=== PATIENT | female | born 1935 | race African-American/Black ===

== ENCOUNTER → 2019-03-22 | Outpatient (CLI) | payer MEDICARE, OTHER ==
[~2019-03-22] MED LIST: AMLO5TAB4 PO; PRED5TAB PO
== END | disposition home or self-care (01) ==
LOC: LAB 11:47
PROVIDERS: ATTEND Internal Medicine
DX: J40 Bronchitis, not specified as acute or chronic (principal); M06.9 Rheumatoid arthritis, unspecified
CPT/HCPCS: 71046

== ENCOUNTER 2019-04-26 11:14 | Inpatient (IN) | payer MEDICARE, OTHER ==
[~2019-04-26] VITALS: Ht 157.5 cm; Wt 44.0 kg
[2019-04-26] MEDS ORDERED: SOD CHLORIDE 0.9% 1,000 ML IV STA (11:39)
[2019-04-26] MEDS ORDERED: ACETAMINOPHEN 325 MG TAB PO PRN (12:00)
[2019-04-26] MEDS ORDERED: ONDANSETRON 4 MG INJ IV PRN (12:00)
[2019-04-26] MEDS ORDERED: ASPIRIN 325 MG TAB PO ONE (12:00)
[2019-04-26] MEDS ORDERED: LEFL20TA18 PO (12:49)
[2019-04-26] MEDS ORDERED: AMLO5TAB4 PO (12:49)
[2019-04-26] MEDS ORDERED: TRAZ-111 PO (12:50)
[2019-04-26] MEDS ORDERED: PRED5TAB PO (12:52)
--- NOTE | 2019-04-26 13:26 | ERD ---
ER Documentation Chief Complaint Chief Complaint pt is sent by PMD cough, weakness, weight loss, sob, x1 wk HX RA HPI This is a very pleasant 83-year-old female presents to the emergency department complaining of chest pain shortness of breath and weight loss with generalized myalgias that is been progressively worsening for the past week. The patient has a known history of rheumatoid arthritis. She also indicates she has history of pulmonary disease secondary to exposure to substances several years ago in [place]. Her primary care physician Dr. Pulliam. She was seen today in his office but immediately was sent to the emergency department to be further evaluated for her symptoms. She did state the chest pain was a pressure-like sensation has been intermittent. It does not radiate to the neck arm back or jaw. The shortness of breath is present at rest. She denies any tenderness in her lower extremities. She had no fevers or shaking no chills. She had a decreased appetite and states she is lost roughly 10 pounds in roughly 1 week. No hemoptysis no hematemesis and no melanotic stools. ROS All systems reviewed and are negative except as per history of present illness. Medications Home Meds Reported Medications Prednisone* (Prednisone*) 5 Mg Tab, 5 MG PO EVERY OTHER DAY, TAB 04/26/19 Trazodone Hcl* (Trazodone Hcl*) 50 Mg Tablet, 50 MG PO QHS, #30 TAB 04/26/19 Leflunomide* (Leflunomide*) 20 Mg Tablet, 20 MG PO DAILY, #30 TAB 04/26/19 Amlodipine Besylate* (Norvasc*) 5 Mg Tablet, 5 MG PO DAILY, TAB 04/26/19 Discontinued Reported Medications Amlodipine Besylate* (Norvasc*) 5 Mg Tablet, 5 MG PO DAILY, TAB 10/03/16 Prednisone* (Prednisone*) 5 Mg Tab, 5 MG PO Q OTHER DAY, TAB 10/03/16 Allergies Allergies: Coded Allergies: codeine (Verified Adverse Reaction, Intermediate, SICK TO STOMACH, 1 12/04/15) N/V PMhx/Soc History of Surgery: Yes (L BKA) Anesthesia Reaction: No Hx Neurological Disorder: No Hx Respiratory Disorders: Yes (ASTHMA) Hx Cardiac Disorders: Yes (HTN) Hx Psychiatric Problems: No Hx Miscellaneous Medical Probl: Yes (RA, DM) Hx Alcohol Use: No Hx Substance Use: No Hx Tobacco Use: No Smoking Status: Never smoker Physical Exam Vitals Vital Signs Date Temp Pulse Resp B/P (MAP) Pulse Ox O2 O2 Flow FiO2 Time Delivery Rate 04/26/19 98.3 108 20 166/86 98 11:18 (112) Physical Exam Constitutional:Well-developed. Well-nourished. HEENT:Normocephalic. Atraumatic.Pupils were equal round reactive to light. Moist mucous membranes.No tonsillar exudates. Neck: No nuchal rigidity. No lymphadenopathy. No posterior cervical spine tenderness or step-offs. Respiratory: Not using accessory muscles of respiration.Lungs were clear to auscultation bilaterally. No rhonchi. No rales. No wheezing. Cardiovascular: Regular rate regular rhythm.No murmurs. No rubs were appreciated.S1, S2 normal. Distal pulses are palpable 2+ bilaterally. GI: Abdomen was soft. Nontender. Non Distended. No pulsatile abdominal masses or bruits. No rebound. No guarding. Bowel sounds were present and normal. Muscle skeletal: Full range of motion of both the upper and lower extremities bilaterally.Normal muscle tone.No assymetrical calf tenderness or swelling. Skin: No petechia, no purpura. No lesions on the palms or the soles of the feet. No maculopapular rash. NEURO: Patient was alert, awake, orientated x3.No facial droop. Gait observed and normal with no ataxia.Speech had regular rate and rhythm. No focal neurological deficits. Result Diagram: 04/26/19 1156 04/26/19 1156 Results 24 hrs Laboratory Tests Test 04/26/19 11:56 White Blood Count 7.4 10^3/ul Red Blood Count 4.86 10^6/ul Hemoglobin 13.8 g/dl Hematocrit 43.9 % Mean Corpuscular Volume 90.3 fl Mean Corpuscular Hemoglobin 28.4 pg Mean Corpuscular Hemoglobin Concent 31.4 g/dl Red Cell Distribution Width 13.4 % Platelet Count 280 10^3/UL Mean Platelet Volume 10.5 fl Immature Granulocytes % 0.400 % Neutrophils % 34.9 % Lymphocytes % 48.3 % Monocytes % 7.2 % Eosinophils % 7.2 % Basophils % 2.0 % Nucleated Red Blood Cells % 0.0 /100WBC Immature Granulocytes # 0.030 10^3/ul Neutrophils # 2.6 10^3/ul Lymphocytes # 3.6 10^3/ul Monocytes # 0.5 10^3/ul Eosinophils # 0.5 10^3/ul Basophils # 0.2 10^3/ul Nucleated Red Blood Cells # 0.0 10^3/ul Prothrombin Time 13.8 Sec Prothrombin Time Ratio 1.1 INR International Normalized Ratio 1.05 Activated Partial Thromboplast Time 36.4 Sec Sodium Level 142 mmol/L Potassium Level 4.3 mmol/L Chloride Level 107 mmol/L Carbon Dioxide Level 23 mmol/L Anion Gap 12 Blood Urea Nitrogen 10 mg/dl Creatinine 0.79 mg/dl Est Glomerular Filtrat Rate mL/min mL/min Glucose Level 108 mg/dl Calcium Level 9.0 mg/dl Total Bilirubin 0.4 mg/dl Direct Bilirubin 0.00 mg/dl Indirect Bilirubin 0.4 mg/dl Aspartate Amino Transf (AST/SGOT) 45 IU/L Alanine Aminotransferase (ALT/SGPT) 9 IU/L Alkaline Phosphatase 161 IU/L Troponin I < 0.012 ng/ml B-Type Natriuretic Peptide 371 PG/ML Total Protein 10.2 g/dl Albumin 4.2 g/dl Globulin 6.00 g/dl Albumin/Globulin Ratio 0.70 Amylase Level 99 U/L Lipase 70 U/L Current Medications Medications Dose Sig/Gaurang Start Time Status Last (Trade) Ordered Route PRN Stop Time Admin Dose Reason Admin Sodium 1,000 ml @ Q1H STAT 04/26/19 DC 04/26/19 Chloride 1,000 mls/hr IV 11:39 12:06 04/26/19 12:38 Ondansetron 4 mg ER BRIDGE 04/26/19 HCl (Zofran PRN IV 12:00 Inj) NAUSEA/VOMITI 04/27/19 11:59 NG 650 mg ER BRIDGE 04/26/19 Acetaminophen PRN PO 12:00 (Tylenol .MILD PAIN 04/27/19 11:59 Tab) 1-3 OR TEMP Aspirin 325 mg ONCE ONCE 04/26/19 DC 04/26/19 (Aspirin) PO 12:00 12:06 04/26/19 12:01 Procedures/MDM The patient presented to the emergency department with chest pain. My clinical evaluation and workup was to distinguish minor causes of chest pain from acute life threatening conditions such as myocardial infarction, pulmonary embolism, aortic dissection, esophageal rupture, cardiac tamponade. The patient was placed on a engine monitor and continuous pulse oximetry. IV access established by nursing staff. The patient received 325 mg of aspirin p.o. 12 Lead EKG tracing ordered and reviewed by myself showed: Normal sinus rhythm of 80 bpm and no arrhythmia. AL interval normal. QRS duration normal. No ST segment elevation No ST segment depression. No changes consistent with acute ischemia. I obtained a 1 view chest radiograph there is reviewed by the radiologist and indicate the followin. Interval decrease mild interstitial infiltrates, resolving mild interstitial edema or atypical infectious/inflammatory process. 2. Unchanged bibasilar coarse reticular opacities, suggestive of chronic interstitial lung disease. Recommend follow-up radiographic imaging. 3. Aortic atherosclerosis. Blood cultures were obtained. I discussed the findings of the chest radiograph with the patient but she does indicate that this is been a chronic inflammatory process. The patient will be admitted under the care of her primary care harvey calix for observation to undergo serial twelve-lead EKG tracings and cardiac set of enzymes. Departure Diagnosis: Primary Impression: Chest pain Chest pain type: unspecified Qualified Codes: R07.9 - Chest pain, unspecified Additional Impression: Shortness of breath Condition: Serious ABIMAEL SHANKAR MD Apr 26, 2019 13:26
[2019-04-26 14:42] VITALS: BP 174/109; PULSE 80; RESP 16
[2019-04-26 14:52] VITALS: Ht 157.5 cm; Wt 44.0 kg
[2019-04-26] MEDS ORDERED: ONDANSETRON 4 MG TAB PO PRN (15:00)
[2019-04-26] MEDS ORDERED: BARIUM SULF 2% 450 ML BTL (BERRY SMOOTHIE) PO ONE (15:00)
[2019-04-26] MEDS ORDERED: DOCUSATE SODIUM 100 MG CAP PO PRN (15:00)
[2019-04-26] MEDS ORDERED: NACL 0.9% 3 ML SYG IV SCH ×2 (15:00)
[2019-04-26] MEDS ORDERED: PROMETHAZINE/CODEINE 5ML CUP PO PRN (15:30)
[2019-04-26] MEDS: SOD CHLORIDE 0.45% 1,000 ML IV SCH (15:42)
[2019-04-26] MEDS: CEFTRIAXONE 1 GM/50 ML (PMX) 50 ML IVPB SCH (15:51)
[2019-04-26] MEDS: METHYLPREDNISOLONE 40 MG INJ IV SCH ×2 (16:03→22:36)
[2019-04-26] MEDS: PROMETHAZINE (1.25 MG/ML) 5 ML CUP PO PRN (17:00)
[2019-04-26] MEDS: AMLODIPINE 5 MG TAB PO SCH (17:26)
[2019-04-26 19:44] VITALS: BP 162/86; PULSE 86; RESP 18
--- NOTE | 2019-04-26 21:23 | HP ---
DATE OF ADMISSION: 04/26/2019 CHIEF COMPLAINT AND HISTORY OF PRESENT ILLNESS: The patient is an 83-year-old lady who presents to [facility] office with recurrent chest pain and shortness of breath and weight loss of over 10 pounds the last 2 or 3 months, with very poor p.o. intake, and patient was evaluated in the emergency room and was a dmitted. The patient states the chest pain was pressure-like, intermittent, without radiation, and s he has shortness of breath at rest. Denies any fever, chills, night sweats. She has had very poor p .o. intake secondary to poor appetite. Denies any abdominal pains. She has a long history of rheuma toid arthritis, being followed by a manager federal, on long-term prednisone. MEDICATIONS: Include: 1. Prednisone 5 mg daily. 2. Trazodone 50 mg at bedtime. 3. Leflunomide 20 mg daily. 4. Amlodipine 5 mg daily. REVIEW OF SYSTEMS: HEAD: No history of headaches, focal weakness, or numbness. EYES: Status post prior eye surgery. ENT: Decreased hearing bilaterally. NECK: No history of thyroid disease. CHEST: History of chronic cough, as above, which has gotten worse recently. HEART: No PND or orthopnea. Patient does have recurrent chest pain not related to exertion, increas ed with cough. GASTROINTESTINAL: No constipation, diarrhea, change in bowel habits. GENITOURINARY: No dysuria, hematuria, kidney stones. FAMILY HISTORY: Noncontributory. PHYSICAL EXAMINATION: GENERAL: The patient is an average-built female who is very pleasant, appears ill. VITAL SIGNS: Temperature 98.3, blood pressure 166/86, O2 saturation 98% on room air. HEENT: Head normocephalic. Mild pallor without cyanosis. Tongue is coated, moist. NECK: Supple. No thyromegaly, bruits or lymphadenopathy. CHEST: Revealed bilateral crackles. HEART: S1, S2 with no definite gallops. ABDOMEN: Soft, nontender, no hepatosplenomegaly. EXTREMITIES: Status post left below knee amputation. Pedals from the right are not palpable. Chris s negative. NEUROLOGIC: No localizing or lateralizing signs. LABORATORY DATA: White count is 7.4, hematocrit 43.9, platelet count 280,000. Sodium 142, potassium 4.3, BUN 10, creatinine 0.79, glucose 108. Troponin is less than 0.012. UA shows trace ketones, tr kaiden leukocyte esterase. INR is 1.05, PTT is 36.4. Chest x-ray shows bilateral interstitial infiltra shruti. IMPRESSION: 1. 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 2. Hypertension. 3. Recent weight loss, poor appetite. Rule out occult malignancy. 4. Peripheral vascular disease, status post left below knee amputation. PLAN: Will start the patient on intravenous antibiotics, she has an element of severe bronchitis, al светлана with intravenous steroids. We will proceed with a CT scan of the chest, obtain procalcitonin lev els, and pulmonary consultation with Dr. Rowe. Consider rheumatologic consultation as well. Dictated By: MELLO ZARAGOZA MD SR/NTS Conf#: [id number] DID#: [id number]
[2019-04-26] MEDS ORDERED: IOHEXOL 300MG/ML 150 ML BTL ONE (23:02)
[2019-04-26] MEDS ORDERED: SOD CHLORIDE 0.9% 100 ML ONE (23:02)
[2019-04-26] MEDS: MIRTAZAPINE 15 MG TAB PO SCH (23:45)
[2019-04-27] MEDS: PROMETHAZINE (1.25 MG/ML) 5 ML CUP PO PRN ×3 (00:20→14:49)
[2019-04-27 00:43] VITALS: BP 153/79; PULSE 79; RESP 18
[2019-04-27 03:44] VITALS: BP 123/79; PULSE 71; RESP 18
[2019-04-27] MEDS: PANTOPRAZOLE (EC) 40 MG TAB PO SCH (06:05)
[2019-04-27] MEDS: METHYLPREDNISOLONE 40 MG INJ IV SCH ×2 (06:05→21:33)
[2019-04-27 07:20] VITALS: BP 153/92; PULSE 74; RESP 20
[2019-04-27] MEDS ORDERED: AMLODIPINE 5 MG TAB PO SCH (09:00)
[2019-04-27] MEDS: AMLODIPINE 5 MG TAB PO SCH (09:07)
[2019-04-27] MEDS: ENOXAPARIN 30 MG/0.3 ML SYG SC SCH (09:35)
[2019-04-27 10:56] VITALS: BP 162/78; PULSE 77; RESP 19
[2019-04-27] MEDS: SOD CHLORIDE 0.45% 1,000 ML IV SCH (11:54)
[2019-04-27] MEDS ORDERED: MAGNESIUM SULFATE 2 GM/50 ML 50 ML IVPB ONE (14:30)
[2019-04-27] MEDS: CEFTRIAXONE 1 GM/50 ML (PMX) 50 ML IVPB SCH (14:49)
[2019-04-27 15:29] VITALS: BP 146/79; PULSE 83; RESP 19
[2019-04-27] MEDS: ACETAMINOPHEN 325 MG TAB PO PRN (16:00)
--- NOTE | 2019-04-27 16:27 | CONS ---
DATE OF ADMISSION: 04/27/2019 DATE OF CONSULTATION: 04/27/2019 TYPE OF CONSULTATION: Pulmonary. REFERRING PHYSICIAN: Dr. Zaragoza. REASON FOR CONSULTATION: Shortness of breath and abnormal chest x-ray. HISTORY OF PRESENT ILLNESS: This is an 83-year-old woman with a history of longstanding rheumatoid a rthritis who initially presented to Dr. Zaragoza's office with complaints of recurrent chest pain and shortness of breath. The patient describes the cough as intermittent and nonproductive. Chest pain she described as pressure-like, intermittent without any particular radiation. The patient subs equently was referred to ER and hospitalized. Chest x-ray revealed increased interstitial markings. At present, the patient denies any chest pain. REVIEW OF SYSTEMS: CONSTITUTIONAL: Denies fevers, chills, night sweats. RESPIRATORY: As mentioned above. Denies any pleurisy. CARDIOVASCULAR: Admitted to chest pain as described above. Denies any palpitation. GASTROINTESTINAL: Denies nausea, vomiting, diarrhea, abdominal pain. GENITOURINARY: Denies dysuria or hematuria. NEUROLOGICAL: Denies dizziness, loss of consciousness. Other systems were reviewed also and found to be negative. The patient had a longstanding history of rheumatoid arthritis and is on low-dose prednisone at home. PAST MEDICAL HISTORY: History of rheumatoid arthritis. ALLERGIES: DENIES. SOCIAL HABITS: Nonsmoker. Denies alcohol abuse. Denies drug abuse. FAMILY HISTORY: Noncontributory. PHYSICAL EXAMINATION: VITAL SIGNS: Blood pressure 153/92, pulse 74, respirations 20, temperature 97.7. She is on room air saturating 100%. HEENT: Pupils are equal and react to light. NECK: Supple, no JVD noted, no cervical adenopathy noted. LUNGS: Bibasilar crackles are present. CARDIOVASCULAR: S1 and S2 normal. ABDOMEN: Soft, nontender, no organomegaly or masses noted. EXTREMITIES: No clubbing, cyanosis, or edema noted. Rheumatoid changes are present in both hands. NEUROLOGIC: No focal deficits. LABORATORIES: WBC 5.3, hemoglobin 13.5, hematocrit 42, platelets 282. Sodium 140, potassium 4.4, ch loride 106, CO2 22, BUN 8, creatinine 0.6, glucose 211. Troponin is less than 0.01. BNP 371. The T SH is 0.645. Amylase and lipase normal. IMAGING: The chest x-ray shows increased interstitial markings. IMPRESSION: 1. Suspect interstitial lung disease. 2. History of rheumatoid arthritis, on low-dose steroids. 3. History of hypertension. 4. Peripheral vascular disease. RECOMMENDATIONS: 1. Obtain CT scan of the chest. 2. Continue steroids for now. 3. Will need some labwork related to possible interstitial lung disease after review of CT scan of t he chest. 4. Will discuss with Dr. Zaragoza. Dictated By: SOBEIDA ROY MD, MA/CUONG Conf#: [id number] DID#: [id number] CC: MELLO ZARAGOZA MD;*EndCC*
--- NOTE | 2019-04-27 17:17 | RADRPT ---
Vent Rate: 73 bpm RR Interval: 824 msec MN Interval: 161 msec QRS Duration: 92 msec QT Interval: 449 msec QTC Interval: 495 msec P-R-T Volin: 61 - 53 - 60 degrees Sinus rhythm...normal P axis, V-rate 50- 99 Electronically Signed By: Yodry Moreno
--- NOTE | 2019-04-27 17:54 | PN ---
DATE: 04/27/2019 SUBJECTIVE: The patient continues with cough but feels much better than yesterday. No hemoptysis. Denies any fever or chills. PHYSICAL EXAMINATION VITAL SIGNS: Temperature 97.7, blood pressure 162/78, O2 sats 99% on room air. CHEST: Bilateral crackles at the bases. HEART: S1, S2 heard, no definite gallops. ABDOMEN: Soft, nontender, no hepatosplenomegaly. EXTREMITIES: No edema. LABORATORY DATA: Sodium 140, potassium 4.4, magnesium is 1.8, hematocrit 542. WBC count 5.3, platel et count 282,000. Total protein is 10.2 with a globulin of 6.0, alkaline phosphatase of 161. IMAGING: CT scan of the chest shows no alveolar infiltrate, mass or nodules noted. There is fibroti c scarring at the lung bases. No hilar adenopathy. No pulmonary embolism. CT of the abdomen and pe lvis shows vascular calcifications and cholelithiasis, 3 x 2.2 cm cystic mass in the left adnexa like ly representing a physiological cyst, 3 mm anterolisthesis of L5 on S1. IMPRESSION: 1. 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 2. Hypertension. 3. Cholelithiasis. 4. Peripheral vascular disease, status post left below knee amputation. 5. Hyperglobulinemia. PLAN: Will obtain serum protein electrophoresis, ordered factor and MARY KAY and consider rheumatologic c onsultation. Will start tapering steroids. The patient also has gram negative UTI. Will obtain uri ne cultures and reevaluate with antibiotics. Dictated By: MELLO ZARAGOZA MD, SR/UCONG Conf#: [id number] DID#: [id number]
[2019-04-27 20:14] VITALS: BP 156/79; PULSE 79; RESP 18
[2019-04-27] MEDS: MIRTAZAPINE 15 MG TAB PO SCH (22:08)
[2019-04-28] VITALS: BP 158/82; PULSE 82; RESP 18
[2019-04-28 04:20] VITALS: BP 160/84; PULSE 74; RESP 18
[2019-04-28] MEDS: SOD CHLORIDE 0.45% 1,000 ML IV SCH (05:49)
[2019-04-28] MEDS: PANTOPRAZOLE (EC) 40 MG TAB PO SCH (05:50)
[2019-04-28] MEDS: ACETAMINOPHEN 325 MG TAB PO PRN (05:50)
[2019-04-28 07:04] VITALS: BP 158/80; PULSE 75; RESP 20
[2019-04-28] MEDS: AMLODIPINE 5 MG TAB PO SCH (08:39)
[2019-04-28] MEDS: METHYLPREDNISOLONE 40 MG INJ IV SCH ×2 (08:39→20:58)
[2019-04-28] MEDS: ENOXAPARIN 30 MG/0.3 ML SYG SC SCH (08:45)
[2019-04-28 11:13] VITALS: BP 150/79; PULSE 81; RESP 18
[2019-04-28] MEDS: PROMETHAZINE (1.25 MG/ML) 5 ML CUP PO PRN ×2 (15:15→23:20)
[2019-04-28] MEDS: CEFTRIAXONE 1 GM/50 ML (PMX) 50 ML IVPB SCH (15:15)
[2019-04-28 15:49] VITALS: BP 163/81; PULSE 77; RESP 19
--- NOTE | 2019-04-28 16:25 | PN ---
DATE: 04/28/2019 SUBJECTIVE: Chart reviewed. The patient remains on room air saturating 98% and does not appear in a cute distress. PHYSICAL EXAMINATION: VITAL SIGNS: Blood pressure 160/84, pulse 74, respiration 18, temperature 97.8. HEENT: Pupils are equal and react to light. NECK: Supple, no cervical adenopathy noted. LUNGS: Bibasilar crackles are present. CARDIOVASCULAR: S1, S2 normal. ABDOMEN: Soft, nontender. No masses noted. EXTREMITIES: No clubbing, cyanosis, or edema noted. Rheumatoid changes present in both hands. NEUROLOGIC: Awake and alert. LABORATORY DATA: WBC 13.8, hemoglobin 14, hematocrit 44.1, platelets 259. Sodium 140, potassium 4.5 , chloride 105, CO2 of 25, BUN 13, creatinine 0.63, glucose 232. IMPRESSION: 1. Suspect interstitial lung disease. 2. History of rheumatoid arthritis, longstanding on low dose steroid. 3. History of hypertension. 4. Peripheral vascular disease. 5. Elevated white count, likely due to steroids. RECOMMENDATIONS: 1. Await CT scan of the chest. 2. Taper steroids. 3. After review of CT scan of the chest, will be able to recommend more lab work. 4. Given her advanced age, the patient may not be a candidate for open lung biopsy. Dictated By: SOBEIDA ROY MD, MA/CUONG Conf#: [id number] DID#: [id number] CC: MELLO ZARAGOZA MD;*EndCC*
[2019-04-28 20:00] VITALS: BP 173/86; PULSE 84; RESP 18
[2019-04-28] MEDS: MIRTAZAPINE 15 MG TAB PO SCH (23:20)
[2019-04-29] VITALS (8 sets, daily range): BP systolic 134–189; BP diastolic 65–93; PULSE 59–99; RESP 15–20
--- NOTE | 2019-04-29 06:26 | PN ---
DATE: 04/28/2019 SUBJECTIVE: The patient continues to have cough, but overall feels better. PHYSICAL EXAMINATION: VITAL SIGNS: Temperature 97.9, blood pressure 163/81, O2 saturation 92% on room air. CHEST: Revealed bilateral crackles at bases. HEART: S1, S2 with no definite gallops. NEUROLOGIC: No localizing or lateralizing signs. LABORATORY DATA: WBC count 13.8, hematocrit 44.1, platelet count 259,000. Sodium 140, potassium 4.5 , BUN is 13, creatinine 0.63, magnesium is 2.7. IMPRESSION: 1. 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 2. Hypertension. 3. Cholelithiasis, asymptomatic. 4. Peripheral vascular disease, status post left below knee amputation. 5. Hyperglobulinemia. PLAN: We will continue to taper steroids. Will discuss with Dr. Arriola regarding further pulmonary w orkup. There was a 3 x 2 cm cystic mass in the left adnexa on the CT scan. CA-125 is 106. Concern about possible ovarian malignancy. We will request Dr. Nelson to evaluate the patient. Recheck labs in a.m. Dictated By: MELLO ZARAGOZA MD SR/NTS Conf#: [id number] DID#: [id number]
[2019-04-29] MEDS: SOD CHLORIDE 0.45% 1,000 ML IV SCH (06:38)
[2019-04-29] MEDS: PANTOPRAZOLE (EC) 40 MG TAB PO SCH (06:38)
[2019-04-29] MEDS: ACETAMINOPHEN 325 MG TAB PO PRN ×2 (07:45→23:38)
[2019-04-29] MEDS: METHYLPREDNISOLONE 40 MG INJ IV SCH (08:40)
[2019-04-29] MEDS: AMLODIPINE 5 MG TAB PO SCH (08:40)
[2019-04-29] MEDS: ENOXAPARIN 30 MG/0.3 ML SYG SC SCH (08:44)
[2019-04-29] MEDS ORDERED: GLUCOSE GEL 15 GRAM TUBE PO PRN ×2 (12:00)
[2019-04-29] MEDS ORDERED: DEXTROSE 50% 50 ML SYRINGE IV PRN ×2 (12:00)
[2019-04-29] MEDS ORDERED: GLUCAGON 1 MG INJ IM PRN (12:00)
[2019-04-29] MEDS ORDERED: GLUCOSE GEL 15 GRAM TUBE BUCCAL PRN (12:00)
--- NOTE | 2019-04-29 12:13 | PN ---
DATE: 04/29/2019 SUBJECTIVE: The patient overall feels better. PHYSICAL EXAMINATION: VITAL SIGNS: Temperature 98.4, blood pressure 146/74, O2 sat 97%. HEENT: Head normocephalic. Mild pallor. Tongue coated, moist. NECK: Supple. CHEST: Bilateral basilar crackles. HEART: S1, S2 heard, no rub or gallops. EXTREMITIES: No edema. Status post left below knee amputation. LABORATORY DATA: WBC count 14.4, hematocrit 39.9. Sodium 136, potassium 4.0, glucose 285. IMPRESSION: 1. 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 2. Hypertension. 3. Asymptomatic cholelithiasis. 4. Peripheral vascular disease, status post left below knee amputation. 5. Left adnexal mass with ICA 125 and this ultrasound was unremarkable. PLAN: Will taper steroids. Start the patient on NovoLog insulin per sliding coverage. Increase act ivity. We will discuss with Dr. Rowe. Dictated By: MELLO ZARAGOZA MD SR/CUONG Conf#: [id number] DID#: [id number]
[2019-04-29] MEDS: predniSONE 10 MG TAB PO SCH (13:39)
[2019-04-29] MEDS: INSULIN ASPART [NOVOLOG] 3 ML PEN SC SCH ×3 (13:48→20:20)
--- NOTE | 2019-04-29 13:49 | CONS ---
Consult Date/Type/Reason Admit Date/Time Apr 27, 2019 at 09:22 Initial Consult Date Type of Consult Pulmonary Date/Time of Note DATE: 04/29/19 TIME: 13:48 Subjective Patient comfortable this morning no respiratory distress Objective Vital Signs Date Temp Pulse Resp B/P (MAP) Pulse Ox O2 O2 Flow FiO2 Time Delivery Rate 04/29/19 97.4 61 15 143/73 98 11:50 (96) 04/27/19 Room Air 03:44 Intake and Output 04/28/19 04/28/19 04/29/19 1414:59 22:59 06:59 IntakeIntake Total 480 ml 790 ml 480 ml OutputOutput Total 1 ml 1 ml 4 ml BalanceBalance 479 ml 789 ml 476 ml Exam PHYSICAL EXAMINATION: VITAL SIGNS: HEENT: Pupils are equal and react to light. NECK: Supple, no cervical adenopathy noted. LUNGS: Bibasilar crackles are present. CARDIOVASCULAR: S1, S2 normal. ABDOMEN: Soft, nontender. No masses noted. EXTREMITIES: No clubbing, cyanosis, or edema noted. Rheumatoid changes present in both hands. NEUROLOGIC: Awake and alert. Results/Medications Result Diagram: 04/29/19 0608 04/29/19 0608 Results 24 hrs Laboratory Tests Test 04/29/19 06:08 04/29/19 12:05 White Blood Count 14.4 H Red Blood Count 4.51 Hemoglobin 12.9 Hematocrit 39.9 Mean Corpuscular Volume 88.5 Mean Corpuscular Hemoglobin 28.6 L Mean Corpuscular Hemoglobin Concent 32.3 Red Cell Distribution Width 13.2 Platelet Count 255 Mean Platelet Volume 11.0 H Immature Granulocytes % 0.600 H Neutrophils % 85.5 H Lymphocytes % 11.0 L Monocytes % 2.8 Eosinophils % 0.0 Basophils % 0.1 Nucleated Red Blood Cells % 0.0 Immature Granulocytes # 0.090 H Neutrophils # 12.3 H Lymphocytes # 1.6 Monocytes # 0.4 Eosinophils # 0.0 Basophils # 0.0 Nucleated Red Blood Cells # 0.0 Sodium Level 136 Potassium Level 4.0 Chloride Level 103 Carbon Dioxide Level 23 Anion Gap 10 Blood Urea Nitrogen 17 Creatinine 0.70 Est Glomerular Filtrat Rate mL/min Glucose Level 285 H Calcium Level 8.3 L Magnesium Level 2.3 Bedside Glucose 172 Medications Current Medications Ceftriaxone Sodium 50 ml @ 100 mls/hr Q24H IVPB Last administered on 04/28/19 15:15; Admin Dose 100 MLS/HR; Start 04/26/19 at 15:00 Sodium Chloride 1,000 ml @ 50 mls/hr Q20H IV Last administered on 04/29/19 06:38; Admin Dose 50 MLS/HR; Start 04/26/19 at 15:00 IV Flush (NS 3 ml) 3 ml PER PROTOCOL IV ; Start 04/26/19 at 15:00 Ondansetron HCl (Zofran Tab) 4 mg Q6H PRN PO NAUSEA/VOMITING Last administered on 04/28/19 20:58; Admin Dose 4 MG; Start 04/26/19 at 15:00 Acetaminophen (Tylenol Tab) 650 mg Q6H PRN PO .PAIN 1-3 OR TEMP Last administered on 04/29/19 07:45; Admin Dose 650 MG; Start 04/26/19 at 15:00 Docusate Sodium (Colace) 100 mg Q12H PRN PO .CONSTIPATION; Start 04/26/19 at 15:00 Pantoprazole (Protonix Tab) 40 mg DAILY@06 PO Last administered on 04/29/19 06:38; Admin Dose 40 MG; Start 04/27/19 at 06:00 Enoxaparin Sodium (Lovenox) 30 mg DAILY SC Last administered on 04/29/19 08:44; Admin Dose 30 MG; Start 04/27/19 at 09:00 IV Flush (NS 3 ml) 3 ml PER PROTOCOL IV ; Start 04/26/19 at 15:00 Amlodipine Besylate (Norvasc) 5 mg DAILY PO Last administered on 04/29/19 08:40; Admin Dose 5 MG; Start 04/26/19 at 18:00 Clonidine (Catapres) 0.1 mg QID PRN PO ELEVATED BLOOD PRESSURE Last administered on 04/28/19 23:19; Admin Dose 0.1 MG; Start 04/26/19 at 15:30 Promethazine HCl (Phenergan Liq) 6.25 mg Q4H PRN PO COUGH Last administered on 04/28/19 23:20; Admin Dose 6.25 MG; Start 04/26/19 at 16:30 Mirtazapine (Remeron) 15 mg QHS PO Last administered on 04/28/19at 23:20; Admin Dose 15 MG; Start 04/26/19 at 21:00 Prednisone (Prednisone) 30 mg DAILY PO ; Start 04/29/19 at 11:30 Insulin Aspart (Novolog Insulin Pen) NOVOLOG *MILD* ALGORITHM WITH MEALS BEDTIME SC ; Start 04/29/19 at 11:50 Miscellaneous Information 1 ea NOTE XX ; Start 04/29/19 at 12:00 Glucose (Glutose) 15 gm Q15M PRN PO DECREASED GLUCOSE; Start 04/29/19 at 12:00 Glucose (Glutose) 22.5 gm Q15M PRN PO DECREASED GLUCOSE; Start 04/29/19 at 12:00 Dextrose (D50w Syringe) 25 ml Q15M PRN IV DECREASED GLUCOSE; Start 04/29/19 at 12:00 Dextrose (D50w Syringe) 50 ml Q15M PRN IV DECREASED GLUCOSE; Start 04/29/19 at 12:00 Glucagon (Glucagen) 1 mg Q15M PRN IM DECREASED GLUCOSE; Start 04/29/19 at 12:00 Glucose (Glutose) 15 gm Q15M PRN BUCCAL DECREASED GLUCOSE; Start 04/29/19 at 12:00 Assessment/Plan Hospital Course (Demo Recall) IMPRESSION: 1. Suspect interstitial lung disease. 2. History of rheumatoid arthritis, longstanding on low dose steroid. 3. History of hypertension. 4. Peripheral vascular disease. 5. Elevated white count, likely due to steroids. RECOMMENDATIONS: 1. Await CT scan of the chest. 2. Taper steroids. 3. CT chest pending Discharge planning okay from pulmonary standpoint outpatient pulmonary function test and follow-up with ELIF Hagan MD, [facility] Apr 29, 2019 13:49
[2019-04-29] MEDS: CEFTRIAXONE 1 GM/50 ML (PMX) 50 ML IVPB SCH (14:33)
[2019-04-29] MEDS: PROMETHAZINE (1.25 MG/ML) 5 ML CUP PO PRN (17:15)
[2019-04-29] MEDS: MIRTAZAPINE 15 MG TAB PO SCH (20:11)
[2019-04-30] VITALS (7 sets, daily range): BP systolic 158–177; BP diastolic 66–84; PULSE 57–76; RESP 15–18
--- NOTE | 2019-04-30 01:59 | QN ---
Documentation Comment CONFERENCE ASSISTANT CONSULT I was asked by Dr Pulliam to see this 83 y.o. female in consultation as a right adnexal cyst was found with a CA-125 level of 106. Ms Varner was admitted a few days ago with bronchitis with associated chest pain, shortness of breath and a cough and she had also experienced a 10# weight loss over the preceding few months. She also has rheumatoid arthritis, hypertension and peripheral vascular disease and was, apparently, quite ill and dehydrated on admit.She was also found to have a UTI and was placed on Rocephin. The pt has been improving steadily. Due to the weight loss Dr Pulliam ordered a CT scan and a small 3 x 2.2 cm left adnexal mass was noted. An US of the pelvis followed and the cyst was visualized as a 2.3 x 1.5 cm simple cyst that appears very benign. A CA-125 was ordered and was found to be 106. The pt is asymptomatic in this regard. PMHx: Bronchitis. RA. HTN. Peripheral vascular disease. UTI. PSHx: HIRAM. 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 All: Codeine. A: Elderly female with bronchitis, improving. UTI. RA. Hypertension. Peripheral vascular disease. Benign appearing left adnexal simple cyst. P: Continue care as necessitated medically. Due to the very benign appearing nature of the adnexal cyst, and somewhat, but not completely, due to the medical status of this patient, my recommendation would be to follow this pt on an outpatient basis and repeat the US in 2 months as well as the CA-125. If the CA- 125 was exceptionally elevated e.g. 1000 then intervention would be called for but as this is not a completely specific test and the levels can be elevated for other reasons AND the cyst appears unilocular and without any solid components I would want more reasons to intervene surgically at this point in time Please call if any questions. Thank you. SHELLY MONGE MD Apr 30, 2019 01:59
[2019-04-30] MEDS: PANTOPRAZOLE (EC) 40 MG TAB PO SCH (05:29)
[2019-04-30] MEDS: INSULIN ASPART [NOVOLOG] 3 ML PEN SC SCH ×4 (07:59→20:02)
[2019-04-30] MEDS: AMLODIPINE 5 MG TAB PO SCH (08:00)
[2019-04-30] MEDS: predniSONE 10 MG TAB PO SCH (08:00)
[2019-04-30] MEDS: ENOXAPARIN 30 MG/0.3 ML SYG SC SCH (08:03)
--- NOTE | 2019-04-30 11:16 | CONS ---
Consult Date/Type/Reason Admit Date/Time Apr 27, 2019 at 09:22 Initial Consult Date Type of Consult Pulmonary Date/Time of Note DATE: 04/30/19 TIME: 11:12 Subjective Patient comfortable no new events Objective Vital Signs Date Temp Pulse Resp B/P (MAP) Pulse Ox O2 O2 Flow FiO2 Time Delivery Rate 04/30/19 97.5 57 15 159/81 98 07:22 (107) 04/30/19 Room Air 03:27 Intake and Output 04/29/19 04/29/19 04/30/19 1515:00 23:00 07:00 IntakeIntake Total 500 ml 800 ml 460 ml OutputOutput Total 1 ml BalanceBalance 499 ml 800 ml 460 ml Exam PHYSICAL EXAMINATION: VITAL SIGNS: HEENT: Pupils are equal and react to light. NECK: Supple, no cervical adenopathy noted. LUNGS: Bibasilar crackles are present. CARDIOVASCULAR: S1, S2 normal. ABDOMEN: Soft, nontender. No masses noted. EXTREMITIES: No clubbing, cyanosis, or edema noted. Rheumatoid changes present in both hands. NEUROLOGIC: Awake and alert. Results/Medications Result Diagram: 04/29/19 0608 04/29/19 0608 Results 24 hrs Laboratory Tests Test 04/29/19 12:05 04/29/19 13:38 04/29/19 17:15 04/29/19 20:10 Bedside Glucose 172 187 168 214 Test 04/30/19 07:55 Bedside Glucose 159 Medications Current Medications Ceftriaxone Sodium 50 ml @ 100 mls/hr Q24H IVPB Last administered on 04/29/19at 14:33; Admin Dose 100 MLS/HR; Start 04/26/19 at 15:00 IV Flush (NS 3 ml) 3 ml PER PROTOCOL IV ; Start 04/26/19 at 15:00 Ondansetron HCl (Zofran Tab) 4 mg Q6H PRN PO NAUSEA/VOMITING Last administered on 04/28/19at 20:58; Admin Dose 4 MG; Start 04/26/19 at 15:00 Acetaminophen (Tylenol Tab) 650 mg Q6H PRN PO .PAIN 1-3 OR TEMP Last administered on 04/29/19at 23:38; Admin Dose 650 MG; Start 04/26/19 at 15:00 Docusate Sodium (Colace) 100 mg Q12H PRN PO .CONSTIPATION; Start 04/26/19 at 15:00 Pantoprazole (Protonix Tab) 40 mg DAILY@06 PO Last administered on 04/30/19at 05:29; Admin Dose 40 MG; Start 04/27/19 at 06:00 Enoxaparin Sodium (Lovenox) 30 mg DAILY SC Last administered on 04/30/19at 08:03 ; Admin Dose 30 MG; Start 04/27/19 at 09:00 IV Flush (NS 3 ml) 3 ml PER PROTOCOL IV ; Start 04/26/19 at 15:00 Amlodipine Besylate (Norvasc) 5 mg DAILY PO Last administered on 04/30/19at 08:00; Admin Dose 5 MG; Start 04/26/19 at 18:00 Clonidine (Catapres) 0.1 mg QID PRN PO ELEVATED BLOOD PRESSURE Last administered on 04/28/19at 23:19; Admin Dose 0.1 MG; Start 04/26/19 at 15:30 Promethazine HCl (Phenergan Liq) 6.25 mg Q4H PRN PO COUGH Last administered on 04/29/19at 17:15; Admin Dose 6.25 MG; Start 04/26/19 at 16:30 Mirtazapine (Remeron) 15 mg QHS PO Last administered on 04/29/19at 20:11; Admin Dose 15 MG; Start 04/26/19 at 21:00 Prednisone (Prednisone) 30 mg DAILY PO Last administered on 04/30/19at 08:00; Admin Dose 30 MG; Start 04/29/19 at 11:30 Insulin Aspart (Novolog Insulin Pen) NOVOLOG *MILD* ALGORITHM WITH MEALS BEDTIME SC Last administered on 04/30/19at 07:59; Admin Dose 1 UNIT; Start 04/29/19 at 11:50 Miscellaneous Information 1 ea NOTE XX ; Start 04/29/19 at 12:00 Glucose (Glutose) 15 gm Q15M PRN PO DECREASED GLUCOSE; Start 04/29/19 at 12:00 Glucose (Glutose) 22.5 gm Q15M PRN PO DECREASED GLUCOSE; Start 04/29/19 at 12:00 Dextrose (D50w Syringe) 25 ml Q15M PRN IV DECREASED GLUCOSE; Start 04/29/19 at 12:00 Dextrose (D50w Syringe) 50 ml Q15M PRN IV DECREASED GLUCOSE; Start 04/29/19 at 12:00 Glucagon (Glucagen) 1 mg Q15M PRN IM DECREASED GLUCOSE; Start 04/29/19 at 12:00 Glucose (Glutose) 15 gm Q15M PRN BUCCAL DECREASED GLUCOSE; Start 04/29/19 at 12:00 Assessment/Plan Hospital Course (Demo Recall) IMPRESSION: 1. ILD 2. History of rheumatoid arthritis, longstanding on low dose steroid. 3. History of hypertension. 4. Peripheral vascular disease. 5. Elevated white count, likely due to steroids. RECOMMENDATIONS: 1. aspiration precautions. 2. Taper steroids. 3. outpatient PFTS. Consider transfer to [facility] ELIF CHAVEZ MD, [facility] Apr 30, 2019 11:16
[2019-04-30] MEDS: CEFTRIAXONE 1 GM/50 ML (PMX) 50 ML IVPB SCH (14:44)
[2019-04-30] MEDS: ACETAMINOPHEN 325 MG TAB PO PRN (20:02)
[2019-04-30] MEDS: MIRTAZAPINE 15 MG TAB PO SCH (20:02)
[2019-05-01] VITALS (7 sets, daily range): BP systolic 123–173; BP diastolic 60–94; PULSE 60–75; RESP 17–18
[2019-05-01] MEDS: PANTOPRAZOLE (EC) 40 MG TAB PO SCH (04:45)
--- NOTE | 2019-05-01 07:13 | PN ---
DATE: 04/30/2019 SUBJECTIVE: The patient overall feels better. Shortness of breath is improving. OBJECTIVE: VITAL SIGNS: Temperature 97.4, blood pressure 160/79, O2 saturation 98% on room air. CHEST: Clinically clear anteriorly. Few crackles at the bases. HEART: S1, S2 heard with no definite gallops. Dr. Hassan's G1 consultation is greatly appreciated. Blood glucose levels stabilizing. IMPRESSION: 1. 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 2. Hypertension. 3. Asymptomatic cholelithiasis. 4. Peripheral vascular disease, status post left below knee amputation. 5. Left adnexal mass with increased CA-125. Gynecology workup in progress. PLAN: We will continue present treatment. We will discuss with Dr. Lindsey regarding further treat ment of RA. Dictated By: MELLO ZARAGOZA MD SR/NTS Conf#: [id number] DID#: [id number]
[2019-05-01] MEDS: INSULIN ASPART [NOVOLOG] 3 ML PEN SC SCH ×4 (07:55→20:52)
[2019-05-01] MEDS: AMLODIPINE 5 MG TAB PO SCH (08:06)
[2019-05-01] MEDS: predniSONE 10 MG TAB PO SCH (08:06)
[2019-05-01] MEDS: ENOXAPARIN 30 MG/0.3 ML SYG SC SCH (08:11)
--- NOTE | 2019-05-01 12:15 | CONS ---
Consult Date/Type/Reason Admit Date/Time Apr 27, 2019 at 09:22 Initial Consult Date Type of Consult Pulmonary Date/Time of Note DATE: 05/01/19 TIME: 12:15 Subjective Patient comfortable this morning no respiratory distress Objective Vital Signs Date Temp Pulse Resp B/P (MAP) Pulse Ox O2 O2 Flow FiO2 Time Delivery Rate 05/01/19 97.9 68 18 142/79 93 11:33 (100) 04/30/19 Room Air 03:27 Intake and Output 04/30/19 04/30/19 05/01/19 1515:00 23:00 07:00 IntakeIntake Total 466 ml 610 ml 220 ml OutputOutput Total 1 ml 1 ml BalanceBalance 465 ml 609 ml 220 ml Exam PHYSICAL EXAMINATION: VITAL SIGNS: HEENT: Pupils are equal and react to light. NECK: Supple, no cervical adenopathy noted. LUNGS: Bibasilar crackles are present. CARDIOVASCULAR: S1, S2 normal. ABDOMEN: Soft, nontender. No masses noted. EXTREMITIES: No clubbing, cyanosis, or edema noted. Rheumatoid changes present in both hands. NEUROLOGIC: Awake and alert. Results/Medications Result Diagram: 04/29/19 0608 04/29/19 0608 Results 24 hrs Laboratory Tests Test 04/30/19 17:14 04/30/19 20:01 05/01/19 08:04 05/01/19 12:03 Bedside Glucose 321 H 116 114 299 H Medications Current Medications Ceftriaxone Sodium 50 ml @ 100 mls/hr Q24H IVPB Last administered on 04/30/19at 14:44; Admin Dose 100 MLS/HR; Start 04/26/19 at 15:00 IV Flush (NS 3 ml) 3 ml PER PROTOCOL IV ; Start 04/26/19 at 15:00 Ondansetron HCl (Zofran Tab) 4 mg Q6H PRN PO NAUSEA/VOMITING Last administered on 04/28/19at 20:58; Admin Dose 4 MG; Start 04/26/19 at 15:00 Acetaminophen (Tylenol Tab) 650 mg Q6H PRN PO .PAIN 1-3 OR TEMP Last administered on 04/30/19at 20:02; Admin Dose 650 MG; Start 04/26/19 at 15:00 Docusate Sodium (Colace) 100 mg Q12H PRN PO .CONSTIPATION; Start 04/26/19 at 15:00 Pantoprazole (Protonix Tab) 40 mg DAILY@06 PO Last administered on 05/01/19at 04:45; Admin Dose 40 MG; Start 04/27/19 at 06:00 Enoxaparin Sodium (Lovenox) 30 mg DAILY SC Last administered on 05/01/19at 08:11; Admin Dose 30 MG; Start 04/27/19 at 09:00 IV Flush (NS 3 ml) 3 ml PER PROTOCOL IV ; Start 04/26/19 at 15:00 Amlodipine Besylate (Norvasc) 5 mg DAILY PO Last administered on 05/01/19at 08:06; Admin Dose 5 MG; Start 04/26/19 at 18:00 Clonidine (Catapres) 0.1 mg QID PRN PO ELEVATED BLOOD PRESSURE Last administered on 05/01/19at 08:06; Admin Dose 0.1 MG; Start 04/26/19 at 15:30 Promethazine HCl (Phenergan Liq) 6.25 mg Q4H PRN PO COUGH Last administered on 04/29/19at 17:15; Admin Dose 6.25 MG; Start 04/26/19 at 16:30 Mirtazapine (Remeron) 15 mg QHS PO Last administered on 04/30/19at 20:02; Admin Dose 15 MG; Start 04/26/19 at 21:00 Prednisone (Prednisone) 30 mg DAILY PO Last administered on 05/01/19at 08:06; Admin Dose 30 MG; Start 04/29/19 at 11:30 Insulin Aspart (Novolog Insulin Pen) NOVOLOG *MILD* ALGORITHM WITH MEALS BEDTIME SC Last administered on 05/01/19at 12:09; Admin Dose 4 UNIT; Start 04/29/19 at 11:50 Miscellaneous Information 1 ea NOTE XX ; Start 04/29/19 at 12:00 Glucose (Glutose) 15 gm Q15M PRN PO DECREASED GLUCOSE; Start 04/29/19 at 12:00 Glucose (Glutose) 22.5 gm Q15M PRN PO DECREASED GLUCOSE; Start 04/29/19 at 12:00 Dextrose (D50w Syringe) 25 ml Q15M PRN IV DECREASED GLUCOSE; Start 04/29/19 at 12:00 Dextrose (D50w Syringe) 50 ml Q15M PRN IV DECREASED GLUCOSE; Start 04/29/19 at 12:00 Glucagon (Glucagen) 1 mg Q15M PRN IM DECREASED GLUCOSE; Start 04/29/19 at 12:00 Glucose (Glutose) 15 gm Q15M PRN BUCCAL DECREASED GLUCOSE; Start 04/29/19 at 12:00 Assessment/Plan Hospital Course (Demo Recall) IMPRESSION: 1. ILD 2. History of rheumatoid arthritis, longstanding on low dose steroid. 3. History of hypertension. 4. Peripheral vascular disease. 5. Elevated white count, likely due to steroids. RECOMMENDATIONS: 1. aspiration precautions. 2. Taper steroids. 3. outpatient PFTS. Consider transfer to [facility] Follow-up with vt as an outpatient. ELIF [facility]AVEZ MD, [facility] May 01, 2019 12:15
[2019-05-01] MEDS: CEFTRIAXONE 1 GM/50 ML (PMX) 50 ML IVPB SCH (15:55)
--- NOTE | 2019-05-01 18:56 | PN ---
DATE: 05/01/2019 SUBJECTIVE: The patient overall feels better. Shortness of breath is improving. OBJECTIVE: VITAL SIGNS: Temperature 97.9, blood pressure 140/79, O2 saturation 98% on room air. HEENT: Head normocephalic. CHEST: Bibasilar crackles. HEART: S1, S2 with no definite gallops. EXTREMITIES: No edema. IMPRESSION: 1. Rheumatoid arthritis with interstitial lung disease, clinically improving. 2. Hypertension. 3. Asymptomatic cholelithiasis. 4. Peripheral vascular disease, status post below knee amputation, left. 5. Left adnexal mass with high CA-125. Dr. Hassan's recommendations much appreciated. PLAN: Rheumatology consultation at the request of Dr. Lindsey will transfer the patient to med/surg and observe for 24 hours. If the patient is stable, we will discharge the patient tomorrow. Dictated By: MELLO ZARAGOZA MD SR/NTS Conf#: [id number] DID#: [id number]
--- NOTE | 2019-05-01 19:06 | CONS ---
DATE OF ADMISSION: 04/27/2019 DATE OF CONSULTATION: HISTORY OF PRESENT ILLNESS: The patient is an 83-year-old -[place] woman with a long history of rheumatoid arthritis treated for many years with prednisone at 5 mg daily and leflunomide 20 mg d aily. The patient does not recall having been treated with other medications for rheumatoid arthriti s. She was followed by a collection clerk in [place]. She states that she has been here for a cou ple of years. She reports that over the last year or so she has been noting some increasing mild luz rtness of breath, but particularly in the last few days prior to admission this became more severe. She has also been having decreased appetite over the last 2 to 3 months and has lost about 10 pounds during that time. In the hospital, she was noted to have a urinary tract infection and chest x-ray w as suggestive of chronic interstitial lung disease. During the hospital stay, she has improved with hydration and antibiotics. In addition, CT of the chest showed chronic interstitial lung disease wit h honeycombing in the lower extremities and vascular calcifications also cholelithiasis and about a 3 cm x 2 cm left adnexal cystic mass, which on further evaluation with ultrasound was felt to be benig n. She did; however, have a CA 125/106, but a [facility] evaluation felt that this is somewhat nonspecific and we will reevaluate in the future for the possibility of consultation. During her hospital stay, she was also placed on IV Solu-Medrol and subsequently changed to prednisone at 30 mg daily. This al so apparently contributed to the improvement of her respiratory status as well as control of the pain and swelling of joints, which she states she has had up to the time of admission. REVIEW OF SYSTEMS: RHEUMATOLOGIC: Possibly positive for Raynaud's phenomenon. She denies history o f rashes. She does have some chronic dryness of the eyes and mouth, but no history of parotitis. MEDICATIONS: Prior to admission included: 1. Prednisone 5 mg daily. 2. Trazodone 50 mg q.p.m. 3. Leflunomide 20 mg daily. 4. Amlodipine 5 mg daily. SOCIAL HISTORY: No history of smoking or alcohol. FAMILY HISTORY: Noncontributory. PHYSICAL EXAMINATION: VITAL SIGNS: Afebrile, blood pressure 142/79, pulse 68, respiration 18, 93% O2 saturation on room ai r, at times it is up 98% to 100%. GENERAL: This is a somewhat cachectic appearing -[place] woman, alert, oriented. SKIN: Without acute lesions. HEENT: Without acute oral or ocular lesions. NECK: Without lymphadenopathy or thyromegaly noted. CHEST: Bibasilar crackles. HEART: Regular rate and rhythm, without noticeable gallops or murmurs. ABDOMEN: Soft without definite masses or tenderness. EXTREMITIES: No edema or cyanosis. MUSCULOSKELETAL SYSTEM: Multiple joint deformities at the hands with ulnar deviation and contracture s, but no synovitis at present, she is status post left BKA. Shoulders with decreased abduction to a bout 90 degrees. Knees with crepitus. NEUROLOGIC: Grossly intact. ASSESSMENT: 1. Probable rheumatoid arthritis history with multiple joint deformities consistent with rheumatoid arthritis, although in this hospital the rheumatoid factor was negative: 2. Interstitial lung disease, probably related to above. 3. Positive MARY KAY. No clear evidence of systemic lupus at this point. 4. Peripheral vascular disease. 5. Hypertension. 6. Elevated CA-125. RECOMMENDATIONS: At this point, would continue the corticosteroids as per pulmonary. Will obtain additional laboratory studies, particularly in view of the positive MARY KAY and negative rheu matoid factor. I would hold off the Leflunomide at this point as it is unclear to what extent it was beneficial and may have additional medication adverse effect. Thank you for allowing me to see the patient rheumatologically. Will follow. Dictated By: MARIELLE GALLEGOS MD CW/NTS Conf#: [id number] DID#: [id number] CC: MELLO ZARAGOZA MD;*End*
[2019-05-01] MEDS: ACETAMINOPHEN 325 MG TAB PO PRN (20:50)
[2019-05-01] MEDS: MIRTAZAPINE 15 MG TAB PO SCH (21:56)
[2019-05-02 02:00] VITALS: BP 167/80; PULSE 66; RESP 20
[2019-05-02] MEDS: PANTOPRAZOLE (EC) 40 MG TAB PO SCH (05:17)
[2019-05-02 07:40] VITALS: BP 154/75; PULSE 60; RESP 17
[2019-05-02] MEDS: INSULIN ASPART [NOVOLOG] 3 ML PEN SC SCH ×2 (08:00→12:16)
[2019-05-02] MEDS: AMLODIPINE 5 MG TAB PO SCH (09:24)
[2019-05-02] MEDS: predniSONE 10 MG TAB PO SCH (09:24)
[2019-05-02] MEDS: ENOXAPARIN 30 MG/0.3 ML SYG SC SCH (09:26)
[2019-05-02] MEDS: ACETAMINOPHEN 325 MG TAB PO PRN (10:58)
--- NOTE | 2019-05-02 12:03 | CONS ---
Consultation Date/Type/Reason Admit Date/Time Apr 27, 2019 at 09:22 Initial Consult Date Type of Consult Pulmonary Patient's condition is stable. Denies any shortness of breath coughing, wheezing. Patient though complaining of mild generalized weakness. Patient has been ambulatory. General exam; elderly woman, awake alert, currently no distress. On room air. H EENT exam; supple neck, no JVD. No lymphadenopathy. Midline trachea. No thyromegaly. Patient is edentulous. No neck masses. Pupils are midsize bilaterally. Chest exam; diminished but clear breath sounds. S1-S2 audible, no murmurs. Regular rhythm. Abdomen exam; soft, scaphoid. Nontender. No organomegaly. Bowel sounds are audible. Extremity exam; no peripheral edema. There are mild changes of rheumatoid arthritis. GAS LOAD DISPATCHER exam; no focal deficit. Assessment and recommendations; 1. Patient admitted with acute bronchitis with marked interval improvement. 2. Advanced rheumatoid arthritis, maintained on long-term steroid use. 3. Interstitial lung disease from RA. Continue current supportive care. Consider discharge. Date/Time of Note DATE: 05/02/19 TIME: 12:02 Exam/Review of Systems Exam Vitals Vital Signs Date Temp Pulse Resp B/P (MAP) Pulse Ox O2 O2 Flow FiO2 Time Delivery Rate 05/02/19 97.8 60 17 154/75 99 Room Air 07:40 (101) Intake and Output 05/01/19 05/01/19 05/02/19 1515:00 23:00 07:00 IntakeIntake Total 890 ml OutputOutput Total 650 ml BalanceBalance 240 ml Results Result Diagram: 04/29/19 0608 04/29/19 0608 Results 24hrs Laboratory Tests Test 05/01/19 12:03 05/01/19 17:32 05/01/19 20:51 05/02/19 08:02 Bedside Glucose 299 H 302 H 139 92 Medications Medication Current Medications Ceftriaxone Sodium 50 ml @ 100 mls/hr Q24H IVPB Last administered on 05/01/19at 15:55; Admin Dose 100 MLS/HR; Start 04/26/19 at 15:00 IV Flush (NS 3 ml) 3 ml PER PROTOCOL IV ; Start 04/26/19 at 15:00 Ondansetron HCl (Zofran Tab) 4 mg Q6H PRN PO NAUSEA/VOMITING Last administered on 04/28/19 20:58; Admin Dose 4 MG; Start 04/26/19 at 15:00 Acetaminophen (Tylenol Tab) 650 mg Q6H PRN PO .PAIN 1-3 OR TEMP Last administered on 05/02/19 10:58; Admin Dose 650 MG; Start 04/26/19 at 15:00 Docusate Sodium (Colace) 100 mg Q12H PRN PO .CONSTIPATION; Start 04/26/19 at 15:00 Pantoprazole (Protonix Tab) 40 mg DAILY@06 PO Last administered on 05/02/19 05:17; Admin Dose 40 MG; Start 04/27/19 at 06:00 Enoxaparin Sodium (Lovenox) 30 mg DAILY SC Last administered on 05/02/19 09:26; Admin Dose 30 MG; Start 04/27/19 at 09:00 IV Flush (NS 3 ml) 3 ml PER PROTOCOL IV ; Start 04/26/19 at 15:00 Amlodipine Besylate (Norvasc) 5 mg DAILY PO Last administered on 05/02/19 09:24; Admin Dose 5 MG; Start 04/26/19 at 18:00 Clonidine (Catapres) 0.1 mg QID PRN PO ELEVATED BLOOD PRESSURE Last administe red on 05/01/19 08:06; Admin Dose 0.1 MG; Start 04/26/19 at 15:30 Promethazine HCl (Phenergan Liq) 6.25 mg Q4H PRN PO COUGH Last administered on 04/29/19 17:15; Admin Dose 6.25 MG; Start 04/26/19 at 16:30 Mirtazapine (Remeron) 15 mg QHS PO Last administered on 05/01/19 21:56; Admin Dose 15 MG; Start 04/26/19 at 21:00 Prednisone (Prednisone) 30 mg DAILY PO Last administered on 05/02/19 09:24; Admin Dose 30 MG; Start 04/29/19 at 11:30 Insulin Aspart (Novolog Insulin Pen) NOVOLOG *MILD* ALGORITHM WITH MEALS BEDTIME SC Last administered on 05/01/19 17:39; Admin Dose 5 UNIT; Start 04/29/19 at 11:50 Miscellaneous Information 1 ea NOTE XX ; Start 04/29/19 at 12:00 Glucose (Glutose) 15 gm Q15M PRN PO DECREASED GLUCOSE; Start 04/29/19 at 12:00 Glucose (Glutose) 22.5 gm Q15M PRN PO DECREASED GLUCOSE; Start 04/29/19 at 12:00 Dextrose (D50w Syringe) 25 ml Q15M PRN IV DECREASED GLUCOSE; Start 04/29/19 at 12:00 Dextrose (D50w Syringe) 50 ml Q15M PRN IV DECREASED GLUCOSE; Start 04/29/19 at 12:00 Glucagon (Glucagen) 1 mg Q15M PRN IM DECREASED GLUCOSE; Start 04/29/19 at 12:00 Glucose (Glutose) 15 gm Q15M PRN BUCCAL DECREASED GLUCOSE; Start 04/29/19 at 12:00 ANNA PATINO May 02, 2019 12:03
--- NOTE | 2019-05-02 12:33 | CONS ---
Consult Date/Type/Reason Admit Date/Time Apr 27, 2019 at 09:22 Initial Consult Date Type of Consultation: Rheumatology Date/Time of Note DATE: 05/02/19 TIME: 12:28 Subjective Feeling better overall. Yesterday did some ambulating. No new complaints Objective Vitals Vital Signs Date Temp Pulse Resp B/P (MAP) Pulse Ox O2 O2 Flow FiO2 Time Delivery Rate 05/02/19 97.8 60 17 154/75 99 Room Air 07:40 (101) Intake and Output 05/01/19 05/01/19 05/02/19 1515:00 23:00 07:00 IntakeIntake Total 890 ml OutputOutput Total 650 ml BalanceBalance 240 ml Exam GENERAL: NAD, alert, oriented. SKIN: Without acute lesions. HEENT: Without acute oral or ocular lesions. NECK: Without lymphadenopathy or thyromegaly noted. CHEST: Bibasilar crackles. HEART: Regular rate and rhythm, without noticeable gallops or murmurs. ABDOMEN: Soft without definite masses or tenderness. EXTREMITIES: No edema or cyanosis. MUSCULOSKELETAL SYSTEM: Multiple joint deformities at the hands with ulnar deviation and contractures, but no synovitis at present, she is status post left BKA. Shoulders with decreased abduction to about 90 degrees. Knees with crepitus. NEUROLOGIC: Grossly intact. Results/Medications Result Diagram: 04/29/19 0608 04/29/19 0608 Results 24 hrs Laboratory Tests Test 05/01/19 17:32 05/01/19 20:51 05/02/19 08:02 05/02/19 12:13 Bedside Glucose 302 H 139 92 186 Home Meds Reported Medications Prednisone* (Prednisone*) 5 Mg Tab, 5 MG PO EVERY OTHER DAY, TAB 04/26/19 Trazodone Hcl* (Trazodone Hcl*) 50 Mg Tablet, 50 MG PO QHS, #30 TAB 04/26/19 Leflunomide* (Leflunomide*) 20 Mg Tablet, 20 MG PO DAILY, #30 TAB 04/26/19 Amlodipine Besylate* (Norvasc*) 5 Mg Tablet, 5 MG PO DAILY, TAB 04/26/19 Discontinued Reported Medications Amlodipine Besylate* (Norvasc*) 5 Mg Tablet, 5 MG PO DAILY, TAB 10/03/16 Prednisone* (Prednisone*) 5 Mg Tab, 5 MG PO Q OTHER DAY, TAB 10/03/16 Medications Current Medications Ceftriaxone Sodium 50 ml @ 100 mls/hr Q24H IVPB Last administered on 05/01/19 15:55; Admin Dose 100 MLS/HR; Start 04/26/19 at 15:00 IV Flush (NS 3 ml) 3 ml PER PROTOCOL IV ; Start 04/26/19 at 15:00 Ondansetron HCl (Zofran Tab) 4 mg Q6H PRN PO NAUSEA/VOMITING Last administered on 04/28/19 20:58; Admin Dose 4 MG; Start 04/26/19 at 15:00 Acetaminophen (Tylenol Tab) 650 mg Q6H PRN PO .PAIN 1-3 OR TEMP Last administered on 05/02/19 10:58; Admin Dose 650 MG; Start 04/26/19 at 15:00 Docusate Sodium (Colace) 100 mg Q12H PRN PO .CONSTIPATION; Start 04/26/19 at 15:00 Pantoprazole (Protonix Tab) 40 mg DAILY@06 PO Last administered on 05/02/19 05:17; Admin Dose 40 MG; Start 04/27/19 at 06:00 Enoxaparin Sodium (Lovenox) 30 mg DAILY SC Last administered on 05/02/19 09:26; Admin Dose 30 MG; Start 04/27/19 at 09:00 IV Flush (NS 3 ml) 3 ml PER PROTOCOL IV ; Start 04/26/19 at 15:00 Amlodipine Besylate (Norvasc) 5 mg DAILY PO Last administered on 05/02/19 09:24; Admin Dose 5 MG; Start 04/26/19 at 18:00 Clonidine (Catapres) 0.1 mg QID PRN PO ELEVATED BLOOD PRESSURE Last administered on 05/01/19 08:06; Admin Dose 0.1 MG; Start 04/26/19 at 15:30 Promethazine HCl (Phenergan Liq) 6.25 mg Q4H PRN PO COUGH Last administered on 04/29/19 17:15; Admin Dose 6.25 MG; Start 04/26/19 at 16:30 Mirtazapine (Remeron) 15 mg QHS PO Last administered on 05/01/19 21:56; Admin Dose 15 MG; Start 04/26/19 at 21:00 Prednisone (Prednisone) 30 mg DAILY PO Last administered on 05/02/19at 09:24; Admin Dose 30 MG; Start 04/29/19 at 11:30 Insulin Aspart (Novolog Insulin Pen) NOVOLOG *MILD* ALGORITHM WITH MEALS BEDTIME SC Last administered on 05/02/19at 12:16; Admin Dose 2 UNIT; Start 04/29/19 at 11:50 Miscellaneous Information 1 ea NOTE XX ; Start 04/29/19 at 12:00 Glucose (Glutose) 15 gm Q15M PRN PO DECREASED GLUCOSE; Start 04/29/19 at 12:00 Glucose (Glutose) 22.5 gm Q15M PRN PO DECREASED GLUCOSE; Start 04/29/19 at 1 2:00 Dextrose (D50w Syringe) 25 ml Q15M PRN IV DECREASED GLUCOSE; Start 04/29/19 at 12:00 Dextrose (D50w Syringe) 50 ml Q15M PRN IV DECREASED GLUCOSE; Start 04/29/19 at 12:00 Glucagon (Glucagen) 1 mg Q15M PRN IM DECREASED GLUCOSE; Start 04/29/19 at 12:00 Glucose (Glutose) 15 gm Q15M PRN BUCCAL DECREASED GLUCOSE; Start 04/29/19 at 12:00 Assessment/Plan Assessment/Plan (Daily) ASSESSMENT: 1. Probable rheumatoid arthritis history with multiple joint deformities consistent with rheumatoid arthritis, although in this hospital the rheumatoid factor was negative: 2. Interstitial lung disease, probably related to above. 3. Positive MARY KAY. No clear evidence of systemic lupus at this point. 4. Peripheral vascular disease. 5. Hypertension. 6. Elevated CA-125. RECOMMENDATIONS: 1. At this point, would continue the corticosteroids as per pulmonary. 2. Various labs pending. MARIELLE GALLEGOS MD May 02, 2019 12:33
[2019-05-02 14:36] VITALS: BP 130/60; PULSE 69
[2019-05-02] MEDS: CEFTRIAXONE 1 GM/50 ML (PMX) 50 ML IVPB SCH (15:00)
--- NOTE | 2019-05-03 03:15 | DS ---
DATE OF ADMISSION: 04/27/2019 DATE OF DISCHARGE: 05/02/2019 FINAL DIAGNOSES: 1. Rheumatoid arthritis history with interstitial lung disease with exacerbation. 2. Hypertension. 3. Urinary tract infection. 4. Peripheral vascular disease, status post left below knee amputation. 5. High CA-125 levels with evidence of left adnexal cyst to be followed up as outpatient. HOSPITAL COURSE: The patient is an 83-year-old lady well known to me from previous followup, present ing with recurrent chest pain, shortness of breath, weight loss of 10 pounds past 2 months and patien t was evaluated in the emergency room and was admitted. The patient has been on long-term prednisone therapy previously been on methotrexate and she is on trazodone 50 mg at bedtime, Leflunomide 20 mg daily, amlodipine 5 mg daily. She was found to be very pleasant, appeared ill. Temperature 98.3. C hest exam revealed bilateral crackles. The patient was placed on a course of intravenous ceftriaxone along with intravenous Solu-Medrol. Had been seen by Dr. Rowe who recommended tapering the steroi ds gradually and outpatient pulmonary function test. In view of the weight loss, CT of the abdomen a nd pelvis was obtained which showed a left adnexal cystic mass followed by an ultrasound which was fe lt to be benign. CA-125 was obtained which was 106. PHARMACY DELIVERY DRIVER consultation was obtained with leno Castro o recommended following up as outpatient, repeat ultrasound in 2 months as well as a CA-125. The pat ient also had mild hyperglycemia secondary to steroids, managed with NovoLog insulin. Blood glucose levels stabilized and steroids were tapered and the patient was discharged home in much improved cond ition to continue tapering dose of steroids and follow up in the office in 1 week. The patient was a lso seen by Dr. Lindsey and further tests were ordered which are pending, namely for lupus. DISCHARGE CONDITION: Much improved. Dictated By: MELLO ZARAGOZA MD SR/NTS Conf#: [id number] DID#: [id number]
== END 2019-05-02 16:05 | disposition home or self-care (01) | DRG 197 ==
LOC: E/R 11:14 → TEL 11:48 → OBSVTOIN 04-27 09:22 → 2NE 05-01 17:20
PROVIDERS: ADMIT Internal Medicine; ATTEND Internal Medicine
DX: M05.19 Rheumatoid lung disease with rheumatoid arthritis of multiple sites (principal); Z68.1 Body mass index [BMI] 19.9 or less, adult; N39.0 Urinary tract infection, site not specified; J84.9 Interstitial pulmonary disease, unspecified; E11.9 Type 2 diabetes mellitus without complications; I73.9 Peripheral vascular disease, unspecified; I10 Essential (primary) hypertension; B96.20 Unspecified Escherichia coli [E. coli] as the cause of diseases classified elsewhere; R63.4 Abnormal weight loss; J45.909 Unspecified asthma, uncomplicated; K80.20 Calculus of gallbladder without cholecystitis without obstruction; R77.1 Abnormality of globulin; J20.9 Acute bronchitis, unspecified; Z79.4 Long term (current) use of insulin; Z89.512 Acquired absence of left leg below knee
CPT/HCPCS: 71045; 71260; 74177; 76856; 80048; 80053; 81001; 82150; 82962; 83036; 83690; 83735; 83880; 84100; 84155; 84165; 84436; 84443; 84484; 85025; 85610; 85730; 86038; 86200; 86226; 86304; 86430; 87086; 93005; 97116; 97161; 97530; G0378; J0696; J1650; J1815; J2920; J3475; J7030; J7512; Q9967